=== PATIENT | male | born 1950 | race Two or more races ===

== ENCOUNTER → 2019-01-12 | Outpatient (REF) | payer OTHER, SELFPAY ==
[2019-01-12 20:51] LABS: ALBUMIN 3.8 GM/DL (3.2-5.2); ALT/SGPT 33 U/L (12-78); BILIRUBIN,TOTAL 0.4 MG/DL (0.2-1.0); BLOOD UREA NITROGEN 18 MG/DL (7-18); CALCIUM LEVEL 9.2 MG/DL (8.8-10.2); CARBON DIOXIDE LEVEL 30 MEQ/L (21-32); CHLORIDE LEVEL 103 MEQ/L (98-107); CHOLESTEROL LEVEL 219 MG/DL (<200); CHOLESTEROL RISK RATIO 5.341 (<5); CREATININE FOR GFR 0.96 MG/DL (0.70-1.30); FREE T4 0.62 NG/DL (0.76-1.46); GLOMERULAR FILTRATION RATE > 60.0 (>42); GLUCOSE, FASTING 84 MG/DL (70-100); HDL CHOLESTEROL 41 MG/DL (>40); LDL CHOLESTEROL 127 MG/DL (<100); NON-HDL-C 178 MG/DL; POTASSIUM SERUM 3.9 MEQ/L (3.5-5.1); SODIUM LEVEL 139 MEQ/L (136-145); TOTAL PROTEIN 7.3 GM/DL (6.4-8.2); TRIGLYCERIDES LEVEL 254 MG/DL (<150)
== END ==
LOC: M SFHCLERA 14:58
PROVIDERS: ATTEND Family Medicine
DX: I10 Essential (primary) hypertension (principal); R79.89 Other specified abnormal findings of blood chemistry

== ENCOUNTER 2020-04-16 17:18 | Inpatient (IN) | payer SELFPAY ==
[~2020-04-16] VITALS: Ht 165.1 cm; Wt 80.2 kg
[2020-04-16] MEDS ORDERED: KETOROLAC 30 MG/ML 1ML VIAL IV ONE (18:00)
[2020-04-16] MEDS ORDERED: NS 1,000 ML IV ONE (18:00)
[2020-04-16 18:19] LABS: BASO # 0.1 10^3/uL (0.0-0.2); BASO % 0.3 % (0.0-1.0); EOS % 0.1 % (0.0-3.0); HEMATOCRIT 37.3 % (42.0-52.0); HEMOGLOBIN 12.4 g/dl (13.5-17.5); LYMPH % 5.5 % (24.0-44.0); MEAN CORPUSCULAR HEMOGLOBIN 33.8 pg (27.0-33.0); MEAN CORPUSCULAR HGB CONC 33.2 g/dl (32.0-36.5); MEAN CORPUSCULAR VOLUME 101.6 fl (80.0-96.0); MONO # 1.4 10^3/uL (0.0-0.8); MONO % 7.8 % (0.0-5.0); NEUTROPHILS # 15.4 10^3/uL (1.5-8.5); NEUTROPHILS % 85.8 % (36.0-66.0); PLATELET COUNT, AUTOMATED 272 10^3/uL (150-450); RED BLOOD COUNT 3.67 10^6/uL (4.30-6.10); WHITE BLOOD COUNT 17.9 10^3/uL (4.0-10.0)
[2020-04-16] MEDS ORDERED: ISOVUE-370 76% 100ML VIAL As Ordered ONE (18:39)
[2020-04-16 18:41] LABS: ALBUMIN 2.7 GM/DL (3.2-5.2); BILIRUBIN,DIRECT 0.2 MG/DL (0.0-0.2); BILIRUBIN,TOTAL 0.4 MG/DL (0.2-1.0); TOTAL PROTEIN 6.7 GM/DL (6.4-8.2)
--- NOTE | 2020-04-16 19:44 | REPVR ---
PROCEDURE INFORMATION: Exam: CT Abdomen And Pelvis With Contrast Exam date and time: 04/16/2020 6:43 PM Age: 70 years old Clinical indication: Abdominal pain; Localized; Left lower quadrant (llq); Additional info: Llq pain TECHNIQUE: Imaging protocol: Computed tomography of the abdomen and pelvis with contrast. Radiation optimization: All CT scans at this facility use at least one of these dose optimization techniques: automated exposure control; mA and/or kV adjustment per patient size (includes targeted exams where dose is matched to clinical indication); or iterative reconstruction. Contrast material: ISOVUE 370; Contrast volume: 100 ml; Contrast route: INTRAVENOUS (IV); COMPARISON: No relevant prior studies available. FINDINGS: Liver: Normal. No mass. Gallbladder and bile ducts: Gallstones are present within the gallbladder. Pancreas: Normal. No ductal dilation. Spleen: Normal. No splenomegaly. Adrenal glands: Normal. No mass. Kidneys and ureters: Normal. No hydronephrosis. Stomach and bowel: There is thickening of the portion of the proximal sigmoid colon which directly abuts the deep inguinal ring of the left inguinal canal. There are multiple diverticula in this region. Extensive inflammation noted extending from the deep inguinal ring into the left inguinal canal and outside the margins of the inguinal canal anteriorly into the overlying pre pubic fat. There is a suggestion of a contained perforation or inflamed giant diverticulum arising from the inferior wall of the sigmoid colon that abuts the deep inguinal ring. Appendix: No evidence of appendicitis. Intraperitoneal space: Unremarkable. No free air. No significant fluid collection. Vasculature: Unremarkable. No abdominal aortic aneurysm. Lymph nodes: Unremarkable. No enlarged lymph nodes. Urinary bladder: Unremarkable as visualized. Reproductive: Prostate measures 3 by 4.8 by 4.1 cm. Bones/joints: Unremarkable. No acute fracture. Soft tissues: Marked Soft tissue thickening and subcutaneous emphysema noted in the left inguinal canal and pre pubic fat. Skin thickening noted at the level of the pannus of the abdomen. IMPRESSION: 1. Necrotizing fasciitis in the left groin. The infection extends into the left inguinal canal to the deep inguinal ring superiorly and involves the adjacent sigmoid colon. The inflammation could be related to a primary complicated diverticulitis or a strangulated Kamara's hernia. 2. Gallstones. Electronically signed by: Ninfa Garcia On 04/16/2020 19:43:25 PM
[2020-04-16] MEDS ORDERED: PIPERACILLIN/TAZOBACTAM SOD 3.375 GM in D5W MINI-BAG PLUS 50 ML IV ONE (20:15)
[2020-04-16 20:59] LABS: RSV AMPLIFICATION NEGATIVE (NEGATIVE)
[2020-04-16] MEDS ORDERED: LIDOCAINE 2% 100MG/5ML SDV (FOR ANES.) As Ordered ONE (21:27)
[2020-04-16] MEDS ORDERED: propofoL 200 MG/20 ML VIAL As Ordered ONE (21:27)
[2020-04-16] MEDS ORDERED: fentaNYL 100 MCG/2 ML INJECTION (J3010) As Ordered ONE ×2 (21:28→22:16)
[2020-04-16] MEDS ORDERED: MIDAZOLAM INJ 2MG/2ML VIAL (J2250 PER 1MG) As Ordered ONE (21:28)
[2020-04-16] MEDS ORDERED: KETOROLAC 60MG 2ML VIAL As Ordered ONE (22:11)
[2020-04-16] MEDS ORDERED: ONDANSETRON 4MG/2ML VIAL As Ordered ONE (22:11)
[2020-04-16] MEDS ORDERED: dexameTHASONE 4 MG/ML 1ML VIAL (J1100 PER 1MG) As Ordered ONE (22:11)
[2020-04-16] MEDS ORDERED: ULTRACET TAB PO PRN ×2 (22:45)
[2020-04-16] MEDS ORDERED: MORPHINE 2 MG/ML 1ML VIAL (J2270) IV PRN ×2 (22:45)
[2020-04-16] MEDS ORDERED: ONDANSETRON 4MG/2ML VIAL IV PRN ×2 (22:45→23:00)
[2020-04-16] MEDS ORDERED: ACETAMINOPHEN TAB 650MG DOSE (2X325MG) PO PRN (22:45)
[2020-04-16] MEDS ORDERED: KETOROLAC 30 MG/ML 1ML VIAL IV PRN ×2 (22:45→23:00)
[2020-04-16] MEDS ORDERED: fentaNYL 100 MCG/2 ML INJECTION (J3010) IV PRN (23:00)
[2020-04-16] MEDS ORDERED: LR 1,000 ML IV SCH (23:00)
[2020-04-16] MEDS ORDERED: PERCOCET 5MG/325MG TAB PO PRN (23:00)
[2020-04-16] MEDS ORDERED: oxyCODONE 5MG TAB PO PRN (23:00)
[2020-04-16] MEDS ORDERED: PERCOCET 5MG/325MG TAB As Ordered ONE (23:16)
[2020-04-16] MEDS: NS 1,000 ML IV SCH (23:43)
[2020-04-16 23:58] VITALS: BP 132/69
[2020-04-17] VITALS (18 sets, daily range): BP systolic 101–146; BP diastolic 63–76
[2020-04-17] MEDS: metroNIDAZOLE 500 MG in IV 1 EA IV SCH ×4 (00:12→23:42)
[2020-04-17] MEDS: CIPROFLOXACIN 400 MG in IV 1 EA IV SCH ×2 (01:19→13:55)
[2020-04-17] MEDS: NS 1,000 ML IV SCH ×3 (06:41→20:39)
[2020-04-17 06:53] LABS: HEMATOCRIT 36.3 % (42.0-52.0); HEMOGLOBIN 12.1 g/dl (13.5-17.5); MEAN CORPUSCULAR HEMOGLOBIN 34.2 pg (27.0-33.0); MEAN CORPUSCULAR HGB CONC 33.3 g/dl (32.0-36.5); MEAN CORPUSCULAR VOLUME 102.5 fl (80.0-96.0); PLATELET COUNT, AUTOMATED 278 10^3/uL (150-450); RED BLOOD COUNT 3.54 10^6/uL (4.30-6.10); WHITE BLOOD COUNT 18.6 10^3/uL (4.0-10.0)
[2020-04-17 07:14] LABS: BLOOD UREA NITROGEN 11 MG/DL (7-18); CARBON DIOXIDE LEVEL 26 MEQ/L (21-32); CHLORIDE LEVEL 106 MEQ/L (98-107); GLOMERULAR FILTRATION RATE > 60.0 (>42); GLUCOSE, FASTING 150 MG/DL (70-100); POTASSIUM SERUM 4.2 MEQ/L (3.5-5.1); SODIUM LEVEL 142 MEQ/L (136-145)
[2020-04-17] MEDS: PANTOPRAZOLE 40MG VIAL (C9113 PER 1) IV SCH (08:39)
--- NOTE | 2020-04-17 08:55 | ECGEPIP ---
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
[2020-04-17] MEDS ORDERED: LIDOCAINE 2% 100MG/5ML SDV (FOR ANES.) As Ordered ONE (09:33)
[2020-04-17] MEDS ORDERED: fentaNYL 250 MCG/5 ML INJECTION (J3010) As Ordered ONE (09:33)
[2020-04-17] MEDS ORDERED: propofoL 200 MG/20 ML VIAL As Ordered ONE (09:33)
[2020-04-17] MEDS ORDERED: ROCURONIUM BROMIDE 50 MG/5 ML VIAL As Ordered ONE ×2 (09:33→11:14)
[2020-04-17] MEDS ORDERED: MIDAZOLAM INJ 2MG/2ML VIAL (J2250 PER 1MG) As Ordered ONE (09:34)
--- NOTE | 2020-04-17 10:25 | HPE ---
HISTORY AND PHYSICAL DATE OF ADMISSION: 04/16/2020 CHIEF COMPLAINT: Abscess, left groin. HISTORY OF PRESENT ILLNESS: Patient is a 70-year-old Oriental [employer] male who recently moved to the area who developed left-sided abdominal pain about a month ago, was seen in the doctor's office and was treated with some antibiotics. During the treatment phase of this, he had some improvement of his abdominal pain and discomfort; however, once he stopped the antibiotics, he developed some progression of the abdominal pain and specifically, over the last week, it has been bad and over the last 48 hours has been getting worse. In the left groin, he has noticed bulging that has been present for the last several days, becoming more painful, tender, erythematous and, under evaluation in the emergency room, was found to have an abscess with questionable necrotizing fasciitis in the left groin. The patient's white count is elevated at 17.9. He has not had a colonoscopy before, has not had any bright red blood per rectum. Was diagnosed with hypertension in the past, although states this is relatively under control and also a "thyroid problem." No surgical history. PHYSICAL EXAMINATION: Reveals a 70-year-old male who looks disheveled. HEENT: Unremarkable. NECK: Supple without adenopathy. LUNGS: Clear anteriorly. HEART: Regular. ABDOMEN: Softly distended. He has tenderness throughout the left lower quadrant, but it seems as though it is isolated to this abscess that is in the left lower quadrant, just above the inguinal ligament and it is tender, erythematous, tightly distending the skin and seems to be necessitating at this time. Edema throughout the wall, cellulitis present with acute tenderness. IMPRESSION/PLAN: The patient is a 70-year-old, most likely had an episode of diverticulitis with perforation with an abscess that now is necessitating through the abdominal wall. Given his presentation, I have discussed with him issues that are involved, specifically with debridement of this extensive necrosis and possible need for exploratory laparotomy with diversion/colostomy, depending on operative findings. Patient understands and would like to proceed with operative intervention and schedule.
[2020-04-17] MEDS ORDERED: dexameTHASONE 4 MG/ML 1ML VIAL (J1100 PER 1MG) As Ordered ONE (10:44)
[2020-04-17] MEDS ORDERED: ePHEDrine SULFATE 25 MG/5 ML(5MG/ML) SYRINGE As Ordered ONE (10:44)
[2020-04-17] MEDS ORDERED: ONDANSETRON 4MG/2ML VIAL As Ordered ONE (10:44)
[2020-04-17] MEDS ORDERED: KETOROLAC 60MG 2ML VIAL As Ordered ONE (10:44)
[2020-04-17] MEDS ORDERED: ACETAMINOPHEN 1000MG 100ML IV BTL (OFIRMEV) (J0131 PER 10MG) As Ordered ONE (10:44)
[2020-04-17] MEDS ORDERED: HYDROmorphone HCL 2 MG/ML 1ML VIAL (J1170) As Ordered ONE (11:19)
[2020-04-17] MEDS ORDERED: SUGAMMADEX SODIUM 500 MG/5 ML VIAL (BRIDION) As Ordered ONE (11:57)
[2020-04-17] MEDS ORDERED: MORPHINE 1MG/ML IN 0.9% NACL 100ML IV BAG As Ordered ONE (12:15)
[2020-04-17] MEDS ORDERED: EPIDURAL/PCA KEYS XX PRN (12:15)
[2020-04-17] MEDS ORDERED: diphenhydrAMINE 50MG/ML VIAL (J1200) IV PRN (12:15)
[2020-04-17] MEDS ORDERED: NALOXONE INJ 0.4MG/1ML VIAL (J2310 PER 1MG) IV PRN (12:15)
[2020-04-17] MEDS ORDERED: NS 1,000 ML IV SCH (12:15)
[2020-04-17] MEDS ORDERED: IPRATROPIUM 0.5MG/ALBUTEROL 2.5MG INH SOL UD 3ML (DUONEB) NEB PRN (12:30)
[2020-04-17] MEDS ORDERED: LR 1,000 ML IV SCH (12:45)
[2020-04-17] MEDS ORDERED: fentaNYL 100 MCG/2 ML INJECTION (J3010) IV PRN (12:45)
[2020-04-17] MEDS ORDERED: oxyCODONE 5MG TAB PO PRN (12:45)
[2020-04-17] MEDS ORDERED: ONDANSETRON 4MG/2ML VIAL IV PRN (12:45)
[2020-04-17] MEDS ORDERED: MORPHINE 1MG/ML IN 0.9% NACL 100ML IV BAG IV PRN (13:00)
[2020-04-17] MEDS: IPRATROPIUM 0.5MG/ALBUTEROL 2.5MG INH SOL UD 3ML (DUONEB) NEB SCH ×2 (14:00→19:53)
[2020-04-17] MEDS: ALVIMOPAN 12 MG CAPSULE (ENTEREG) PO SCH (20:39)
[2020-04-18] VITALS (7 sets, daily range): BP systolic 114–148; BP diastolic 64–84
[2020-04-18] MEDS ORDERED: NS 1,000 ML IV ONE (00:15)
[2020-04-18] MEDS: CIPROFLOXACIN 400 MG in IV 1 EA IV SCH ×2 (00:23→13:29)
[2020-04-18] MEDS: IPRATROPIUM 0.5MG/ALBUTEROL 2.5MG INH SOL UD 3ML (DUONEB) NEB SCH ×4 (01:43→19:51)
[2020-04-18] MEDS: NS 1,000 ML IV SCH ×4 (04:58→23:52)
[2020-04-18 06:40] LABS: HEMOGLOBIN 10.5 g/dl (13.5-17.5); MEAN CORPUSCULAR HEMOGLOBIN 34.7 pg (27.0-33.0); MEAN CORPUSCULAR HGB CONC 33.9 g/dl (32.0-36.5); MEAN CORPUSCULAR VOLUME 102.3 fl (80.0-96.0); PLATELET COUNT, AUTOMATED 266 10^3/uL (150-450); RED BLOOD COUNT 3.03 10^6/uL (4.30-6.10); WHITE BLOOD COUNT 18.6 10^3/uL (4.0-10.0)
[2020-04-18 07:04] LABS: BLOOD UREA NITROGEN 16 MG/DL (7-18); CALCIUM LEVEL 8.2 MG/DL (8.8-10.2); CARBON DIOXIDE LEVEL 25 MEQ/L (21-32); CHLORIDE LEVEL 109 MEQ/L (98-107); CREATININE FOR GFR 0.71 MG/DL (0.70-1.30); GLOMERULAR FILTRATION RATE > 60.0 (>42); GLUCOSE, FASTING 129 MG/DL (70-100); POTASSIUM SERUM 4.3 MEQ/L (3.5-5.1); SODIUM LEVEL 143 MEQ/L (136-145)
[2020-04-18] MEDS: metroNIDAZOLE 500 MG in IV 1 EA IV SCH ×3 (08:56→23:51)
[2020-04-18] MEDS: ALVIMOPAN 12 MG CAPSULE (ENTEREG) PO SCH ×2 (08:56→21:23)
[2020-04-18] MEDS: PANTOPRAZOLE 40MG VIAL (C9113 PER 1) IV SCH (08:56)
--- NOTE | 2020-04-18 11:14 | RO ---
OPERATIVE NOTE DATE OF OPERATION: 04/16/2020 PREOPERATIVE DIAGNOSIS: Left groin abscess. POSTOPERATIVE DIAGNOSIS: Left groin abscess (necrotic skin, subcutaneous tissue). PROCEDURE: Excision and drainage/debridement of abdominal wall. SURGEON: Jeb Chen MD WRITER TECHNICAL PUBLICATIONS: ANESTHESIA: General endotracheal anesthesia. DESCRIPTION OF PROCEDURE: The patient was taken to the operating room, was given general anesthesia. After adequate anesthesia and preoperative antibiotics were given, the patient was prepped and draped in usual sterile fashion. An elliptical incision was made over the top of the abscess in the left groin. However, starting to get through the skin and subcutaneous tissue there was some significantly necrotic tissue present and wider dissection was performed to incorporate this mass abscess in the left groin. Once this abscess was opened there was some stool within the abscess with some purulent discharge and eventually the roof of the abscess down to the abdominal wall was debrided back and removed. There was some minimal drainage appreciated but I was not able to appreciate any stool or necrotic tissue extending up into the abdominal wall at this time. Given that this was most likely a diverticular abscess that perforated with some stool within it and then necessitated through the abdominal wall discussed with the family postoperatively that the plan is to continue with some dressing changes. However, if he develops a fistula tract from the colon out to the abdominal wall he may need operative intervention. They understand current plans.
--- NOTE | 2020-04-18 12:48 | IPNPDOC ---
Text Note Date of Service The patient was seen on 04/18/20. NOTE General Surgery Dr. Chen. Subjective. The patient is a 70-year-old [employer] male with progressive abdominal pain most likely had an episode of diverticulitis with perforation developing left groin abscess with necrotic skin and subcutaneous tissue. Patient is POD 2 status post excision and debridement of abdominal wall as per Dr. Chen. POD 1 status post sigmoid colon resection with colostomy as per Dr. Chen. The patient reports abdominal pain is controlled. He does report pain with moving or coughing which is to be expected. Objective. The patient is resting comfortably in bed. Temperature 98.2, heart rate 65, respiratory rate 15, blood pressure 117/84 and saturation 96% on 2 L nasal cannula. Cardiovascular. S1-S2 regular rate and rhythm Respiratory. Good air entry, there are few crackles at the bases. Abdomen. The patient is examined with Dr. Chen. Colostomy present with minimal brown liquid output. Stoma is pink.Mild abdominal distention. Midline abdominal incision and left groin incision with small amount of bloody drainage on the dressing. Necrotic tissue is still noted. The incisions were redressed with incisions packed with dry gauze with ABD pad. Extremities. No edema. I/O 2125/370 +1755 ARLYN drain right abdomen 125 mL 04/17/20 Labs. WBC 18.6, hemoglobin 10.5, platelets 266, serum creatinine 0.71 with GFR greater than 60. Assessment and plan POD2 Left groin abscess excision and debridement. Continue with dressing changes with plan to transition to wound VAC 04/19/20. POD1 sigmoid colon resection with colostomy. NPO IV fluids 125 mL per hour. Ostomy is pink There is a small amount of brown liquid noted for output. Typical postoperative appearance. Awaiting return to normal bowel function. Continue to monitor. Anemia. Hemoglobin is noted to be 10.5, this is down from admission baseline of 12. Currently there are no signs of active bleeding. Continue to monitor for need for transfusion. Recheck labs in a.m. Infectious The patient remained afebrile. White blood cell count was noted to be 18.6. Abscess fluid culture is pending. Initial Gram stain indicated few gram-positive rods and few gram-positive cocci. Continue with IV Cipro/Flagyl pending results. Continue with nebs Encouraged incentive spirometry. VS,Fishbone, I+O VS, Fishbone, I+O Laboratory Tests 04/18/20 06:19 Vital Signs Date Time Temp Pulse Resp B/P (MAP) Pulse Ox O2 Delivery O2 Flow Rate FiO2 04/18/20 10:00 98.2 65 15 117/84 (95) 96 Nasal Cannula 2.0 I&O- Last 24 Hours up to 6 AM 04/18/20 06:00 Intake Total 3225 ml Output Total 820 ml Balance 2405 ml Milena Russo Apr 18, 2020 12:48
[2020-04-19] MEDS: IPRATROPIUM 0.5MG/ALBUTEROL 2.5MG INH SOL UD 3ML (DUONEB) NEB SCH ×4 (00:33→19:35)
[2020-04-19] MEDS: CIPROFLOXACIN 400 MG in IV 1 EA IV SCH ×2 (01:22→12:15)
[2020-04-19 02:00] VITALS: BP 135/72
[2020-04-19 06:00] VITALS: BP 132/71
[2020-04-19 06:08] LABS: HEMATOCRIT 32.6 % (42.0-52.0); HEMOGLOBIN 10.7 g/dl (13.5-17.5); MEAN CORPUSCULAR HEMOGLOBIN 33.6 pg (27.0-33.0); MEAN CORPUSCULAR HGB CONC 32.8 g/dl (32.0-36.5); MEAN CORPUSCULAR VOLUME 102.5 fl (80.0-96.0); PLATELET COUNT, AUTOMATED 278 10^3/uL (150-450); RED BLOOD COUNT 3.18 10^6/uL (4.30-6.10); WHITE BLOOD COUNT 10.6 10^3/uL (4.0-10.0)
[2020-04-19 06:29] LABS: BLOOD UREA NITROGEN 14 MG/DL (7-18); CARBON DIOXIDE LEVEL 30 MEQ/L (21-32); CHLORIDE LEVEL 109 MEQ/L (98-107); CREATININE FOR GFR 0.73 MG/DL (0.70-1.30); GLOMERULAR FILTRATION RATE > 60.0 (>42); GLUCOSE, FASTING 98 MG/DL (70-100); SODIUM LEVEL 144 MEQ/L (136-145)
[2020-04-19] MEDS: ALVIMOPAN 12 MG CAPSULE (ENTEREG) PO SCH ×2 (08:25→21:48)
[2020-04-19] MEDS: metroNIDAZOLE 500 MG in IV 1 EA IV SCH ×2 (08:25→16:55)
[2020-04-19] MEDS: PANTOPRAZOLE 40MG VIAL (C9113 PER 1) IV SCH (08:25)
[2020-04-19 10:00] VITALS: BP 132/71
--- NOTE | 2020-04-19 10:59 | IPNPDOC ---
Text Note Date of Service The patient was seen on 04/19/20. NOTE General Surgery Dr. Chen. Subjective. The patient is a 70-year-old Scientology male with progressive abdominal pain most likely had an episode of diverticulitis with perforation developing left groin abscess with necrotic skin and subcutaneous tissue. Patient is POD 3 status post excision and debridement of abdominal wall as per Dr. Chen. POD 2 status post sigmoid colon resection with colostomy as per Dr. Chen. The patient reports abdominal pain this morning but he has not been utilizing his [employer], he forgets to use it. 's is also confirmed with nursing. Objective. The patient is resting comfortably in bed. Afebrile, heart rate 75, respiratory rate 18, blood pressure 132/71 and saturation 92% on room air. Cardiovascular. S1-S2 regular rate and rhythm Respiratory. Good air entry, there are few crackles at the bases. Abdomen. The patient is examined with Dr. Chen. Colostomy present with no output yet. Stoma is pink. Still with mild abdominal distention. Midline abdominal incision and left groin incision with shadowing on the dressing. Necrotic tissue is still noted. Plan is to apply wound VAC this morning. Extremities. No edema. I/O 4025/1410, +2615 ARLYN drain right abdomen 60 mL 04/18/20 Labs. WBC 10.6 which is decreased from 18.6 yesterday, hemoglobin 10.7 which is stable, platelets 278, serum creatinine 0.73 with GFR greater than 60. Assessment and plan POD3 Left groin abscess excision and debridement. Plan to apply wound VAC to both abdominal incisions today, discussed this with nursing. POD2 sigmoid colon resection with colostomy. Continue NPO The patient did have an IV fluid bolus 2/1 of 1 L, maintenance IV fluids are 125 mL per hour. Ostomy is pink There is no ostomy output thus far, awaiting return to normal bowel function. The patient's pain has been suboptimally controlled as he forgets to use [employer]. Plan is to discontinue [employer] and prn Toradol and change to scheduled Toradol 15 mg every 6 hours (15 mg dose recommended over 65yo), morphine 2 mg IV every 2 hours as needed. Continue to monitor. Anemia. Hemoglobin is noted to be 10.7, this is down from admission baseline of 12 but is stable over the past 2 days. Currently there are no signs of active bleeding. Continue to monitor for need for transfusion. Continue to monitor labs. Infectious The patient remained afebrile. White blood cell count is significantly improved today. Abscess fluid culture indicates pansensitive Escherichia coli. Initial Gram stain indicated few gram-positive rods and few gram-positive cocci. Continue with IV Cipro/Flagyl. Continue with nebs Encouraged incentive spirometry. VS,Fishbone, I+O VS, Fishbone, I+O Laboratory Tests 04/19/20 05:44 Vital Signs Date Time Temp Pulse Resp B/P (MAP) Pulse Ox O2 Delivery O2 Flow Rate FiO2 04/19/20 10:00 98.0 75 18 132/71 (91) 92 Room Air 04/18/20 10:00 2.0 I&O- Last 24 Hours up to 6 AM 04/19/20 06:00 Intake Total 2200 ml Output Total 3440 ml Balance -1240 ml Milena Russo Apr 19, 2020 10:59
[2020-04-19] MEDS ORDERED: MORPHINE 2 MG/ML 1ML VIAL (J2270) IV PRN (11:00)
[2020-04-19] MEDS: KETOROLAC 30 MG/ML 1ML VIAL IV SCH ×2 (12:15→16:55)
[2020-04-19 14:00] VITALS: BP 130/73
[2020-04-19 18:00] VITALS: BP 140/70
[2020-04-19 20:00] VITALS: BP 131/79
[2020-04-20] MEDS: metroNIDAZOLE 500 MG in IV 1 EA IV SCH ×4 (00:45→23:41)
[2020-04-20] MEDS: IPRATROPIUM 0.5MG/ALBUTEROL 2.5MG INH SOL UD 3ML (DUONEB) NEB SCH ×4 (01:20→20:58)
[2020-04-20] MEDS: CIPROFLOXACIN 400 MG in IV 1 EA IV SCH ×2 (01:57→12:08)
[2020-04-20 02:00] VITALS: BP 137/80
[2020-04-20] MEDS: KETOROLAC 30 MG/ML 1ML VIAL IV SCH ×5 (05:30→23:41)
[2020-04-20 06:00] VITALS: BP 141/91
[2020-04-20] MEDS: NS 1,000 ML IV SCH (06:33)
[2020-04-20 06:46] LABS: HEMATOCRIT 37.5 % (42.0-52.0); HEMOGLOBIN 12.6 g/dl (13.5-17.5); MEAN CORPUSCULAR HEMOGLOBIN 33.8 pg (27.0-33.0); MEAN CORPUSCULAR HGB CONC 33.6 g/dl (32.0-36.5); MEAN CORPUSCULAR VOLUME 100.5 fl (80.0-96.0); PLATELET COUNT, AUTOMATED 296 10^3/uL (150-450); RED BLOOD COUNT 3.73 10^6/uL (4.30-6.10); WHITE BLOOD COUNT 9.3 10^3/uL (4.0-10.0)
[2020-04-20 06:58] LABS: BLOOD UREA NITROGEN 14 MG/DL (7-18); CALCIUM LEVEL 8.4 MG/DL (8.8-10.2); CARBON DIOXIDE LEVEL 29 MEQ/L (21-32); CHLORIDE LEVEL 103 MEQ/L (98-107); CREATININE FOR GFR 0.68 MG/DL (0.70-1.30); GLOMERULAR FILTRATION RATE > 60.0 (>42); GLUCOSE, FASTING 114 MG/DL (70-100); POTASSIUM SERUM 3.9 MEQ/L (3.5-5.1); SODIUM LEVEL 140 MEQ/L (136-145)
[2020-04-20] MEDS: PANTOPRAZOLE 40MG VIAL (C9113 PER 1) IV SCH (08:23)
[2020-04-20] MEDS: ALVIMOPAN 12 MG CAPSULE (ENTEREG) PO SCH ×2 (08:23→19:44)
--- NOTE | 2020-04-20 09:15 | IPNPDOC ---
Text Note Date of Service The patient was seen on 04/20/20. NOTE General Surgery Dr. Chen. Subjective. The patient is a 70-year-old Shinto male with progressive abdominal pain most likely had an episode of diverticulitis with perforation developing left groin abscess with necrotic skin and subcutaneous tissue. Patient is POD 4 status post excision and debridement of abdominal wall as per Dr. Chen. POD 3 status post sigmoid colon resection with colostomy as per Dr. Chen. The patient reports abdominal pain has been reasonably controlled. Has been receiving scheduled Toradol, he has not used any morphine IV. Objective. The patient is resting comfortably in bed. Afebrile, heart rate 85, respiratory rate 18, blood pressure 141/91 and saturation 95% on room air. Cardiovascular. S1-S2 regular rate and rhythm Respiratory. Good air entry, no wheezing, no inspiratory rales were noted. Abdomen. The patient is examined with Dr. Chen. Colostomy present with no output yet but air is noted in the colostomy bag. Stoma is pink. Abdominal distention is improving. Midline abdominal incision and left groin incision with wound VAC intact. Extremities. No edema. I/O 1790/4285 -2495 ARLYN drain right abdomen 35 mL 04/19/20 Labs. WBC 9.3 this has continued to decline over the past few days, hemoglobin 12.6 which is back to his baseline at admission, platelets 296, serum creatinine 0.68 with GFR greater than 60. Assessment and plan POD4 Left groin abscess excision and debridement. Continue with wound VAC POD3 sigmoid colon resection with colostomy. Ostomy is pink, there is air noted inside the colostomy bag. Plan to discontinue IV fluids and try clear liquid diet. The patient's pain has been reasonably controlled with scheduled Toradol 15 mg every 6 hours. He has not used any IV morphine. Discontinue Schmidt Continue to monitor. Anemia. Hemoglobin is 12.6,this appears to be back to his admission baseline. Continue to monitor labs. Infectious The patient remains afebrile. White blood cell count is again improved and is noted to be 9.3 Abscess fluid culture indicates pansensitive Escherichia coli. Initial Gram stain indicated few gram-positive rods and few gram-positive cocci. Continue with IV Cipro/Flagyl. Continue with nebs and continue to encourage incentive spirometry. VS,Fishbone, I+O VS, Fishbone, I+O Laboratory Tests 04/20/20 06:14 Vital Signs Date Time Temp Pulse Resp B/P (MAP) Pulse Ox O2 Delivery O2 Flow Rate FiO2 04/20/20 06:00 97.2 85 18 141/91 (108) 95 Room Air 04/18/20 10:00 2.0 I&O- Last 24 Hours up to 6 AM 04/20/20 05:59 Intake Total 1790 ml Output Total 3585 ml Balance -1795 ml Milena Russo Apr 20, 2020 09:13
[2020-04-20 10:00] VITALS: BP 140/81
[2020-04-20 14:00] VITALS: BP 141/79
[2020-04-20 18:00] VITALS: BP 135/86
[2020-04-20 20:00] VITALS: BP 126/81
[2020-04-21] MEDS: CIPROFLOXACIN 400 MG in IV 1 EA IV SCH ×2 (01:10→12:35)
[2020-04-21] MEDS: IPRATROPIUM 0.5MG/ALBUTEROL 2.5MG INH SOL UD 3ML (DUONEB) NEB SCH ×4 (01:36→20:00)
[2020-04-21 02:00] VITALS: BP 128/82
[2020-04-21 06:00] VITALS: BP 129/80
[2020-04-21] MEDS: KETOROLAC 30 MG/ML 1ML VIAL IV SCH ×4 (06:06→23:48)
[2020-04-21 06:34] LABS: HEMATOCRIT 38.7 % (42.0-52.0); HEMOGLOBIN 12.9 g/dl (13.5-17.5); MEAN CORPUSCULAR HGB CONC 33.3 g/dl (32.0-36.5); MEAN CORPUSCULAR VOLUME 102.1 fl (80.0-96.0); PLATELET COUNT, AUTOMATED 278 10^3/uL (150-450); RED BLOOD COUNT 3.79 10^6/uL (4.30-6.10); WHITE BLOOD COUNT 10.3 10^3/uL (4.0-10.0)
[2020-04-21 06:56] LABS: BLOOD UREA NITROGEN 15 MG/DL (7-18); CALCIUM LEVEL 8.5 MG/DL (8.8-10.2); CARBON DIOXIDE LEVEL 28 MEQ/L (21-32); CHLORIDE LEVEL 105 MEQ/L (98-107); CREATININE FOR GFR 0.78 MG/DL (0.70-1.30); GLOMERULAR FILTRATION RATE > 60.0 (>42); GLUCOSE, FASTING 110 MG/DL (70-100); POTASSIUM SERUM 3.5 MEQ/L (3.5-5.1); SODIUM LEVEL 140 MEQ/L (136-145)
[2020-04-21] MEDS: metroNIDAZOLE 500 MG in IV 1 EA IV SCH ×3 (09:11→23:49)
[2020-04-21] MEDS: PANTOPRAZOLE 40MG VIAL (C9113 PER 1) IV SCH (09:11)
[2020-04-21] MEDS: ALVIMOPAN 12 MG CAPSULE (ENTEREG) PO SCH ×2 (09:11→20:39)
--- NOTE | 2020-04-21 09:55 | IPNPDOC ---
Text Note Date of Service The patient was seen on 04/21/20. NOTE General Surgery Dr. Chen. Subjective. The patient is a 70-year-old Buddhism male with progressive abdominal pain most likely had an episode of diverticulitis with perforation developing left groin abscess with necrotic skin and subcutaneous tissue. Patient is POD 5 status post excision and debridement of abdominal wall as per Dr. Chen. POD 4 status post sigmoid colon resection with colostomy as per Dr. Chen. The patient reports abdominal pain has been reasonably controlled. Has been receiving scheduled Toradol, he has not used any morphine IV. Patient is jared ating clear liquids, no nausea or vomiting, but states his appetite is poor. He was out of bed yesterday to the chair and ambulated in his room and to the nurse's station. Objective. The patient is resting comfortably in bed. Afebrile, heart rate 81, respiratory rate 18, blood pressure 129/80 and s aturation 97% on room air. Cardiovascular. S1-S2 regular rate and rhythm Respiratory. Good air entry, no wheezing, no inspiratory rales were noted. Abdomen. Colostomy present with no output yet but air is noted in the colostomy bag. Stoma is pink. Abdominal distention is less today. Midline abdominal incision and left groin incision with wound VAC intact. ARLYN drain intact with small amount of serosanguineous drainage this morning. Extremities. No edema. I/O 600po/1000IV /1620 -20 ARLYN drain right abdomen 70 mL 04/19/20 Labs. WBC 10.3, 9.3 yesterday hemoglobin 12.9 which is back to his baseline at admission, platelets 278, serum creatinine 0.78 with GFR greater than 60. Assessment and Plan POD5 Left groin abscess excision and debridement. Continue with wound VAC POD4 sigmoid colon resection with colostomy. Ostomy is pink, there is air noted inside the colostomy bag. No stool yet. ARLYN drain 70 mL yesterday Continue with clear liquid diet. The patient's pain has been reasonably controlled with scheduled Toradol 15 mg every 6 hours. He has not used any IV morphine. Continue to monitor. Anemia. Hemoglobin is 12.9,back to his admission baseline. Continue to monitor labs. Infectious The patient remains afebrile. White blood cell count is again improved and is noted to be 10.3, this is compared with 9.3 yesterday. Abscess fluid culture final report 04/20/20 indicated Escherichia coli. Sensitive to quinolone. Strep anginosus also sensitive to quinolone. Continue with IV Cipro/Flagyl. VS,Fishbone, I+O VS, Fishbone, I+O Laboratory Tests 04/21/20 06:08 Vital Signs Date Time Temp Pulse Resp B/P (MAP) Pulse Ox O2 Delivery O2 Flow Rate FiO2 04/21/20 06:00 98.1 81 18 129/80 (96) 97 Room Air 04/18/20 10:00 2.0 I&O- Last 24 Hours up to 6 AM 04/21/20 06:00 Intake Total 1600 ml Output Total 1370 ml Balance 230 ml Milena Russo Apr 21, 2020 09:55
[2020-04-21 10:00] VITALS: BP 131/82
[2020-04-21 14:00] VITALS: BP 141/78
[2020-04-21 18:00] VITALS: BP 133/77
[2020-04-21 20:00] VITALS: BP 140/81
[2020-04-22] MEDS: CIPROFLOXACIN 400 MG in IV 1 EA IV SCH ×2 (00:55→12:35)
[2020-04-22] MEDS: IPRATROPIUM 0.5MG/ALBUTEROL 2.5MG INH SOL UD 3ML (DUONEB) NEB SCH ×4 (02:00→20:00)
[2020-04-22 02:06] VITALS: BP 126/82
[2020-04-22] MEDS: KETOROLAC 30 MG/ML 1ML VIAL IV SCH ×3 (05:34→17:01)
[2020-04-22 05:59] LABS: HEMATOCRIT 37.8 % (42.0-52.0); HEMOGLOBIN 12.8 g/dl (13.5-17.5); MEAN CORPUSCULAR HEMOGLOBIN 34.3 pg (27.0-33.0); MEAN CORPUSCULAR HGB CONC 33.9 g/dl (32.0-36.5); MEAN CORPUSCULAR VOLUME 101.3 fl (80.0-96.0); PLATELET COUNT, AUTOMATED 266 10^3/uL (150-450); RED BLOOD COUNT 3.73 10^6/uL (4.30-6.10); WHITE BLOOD COUNT 10.2 10^3/uL (4.0-10.0)
[2020-04-22 06:00] VITALS: BP 138/87
[2020-04-22 06:21] LABS: BLOOD UREA NITROGEN 14 MG/DL (7-18); CALCIUM LEVEL 8.4 MG/DL (8.8-10.2); CARBON DIOXIDE LEVEL 29 MEQ/L (21-32); CHLORIDE LEVEL 107 MEQ/L (98-107); CREATININE FOR GFR 0.74 MG/DL (0.70-1.30); GLOMERULAR FILTRATION RATE > 60.0 (>42); GLUCOSE, FASTING 102 MG/DL (70-100); POTASSIUM SERUM 3.8 MEQ/L (3.5-5.1); SODIUM LEVEL 142 MEQ/L (136-145)
[2020-04-22] MEDS: metroNIDAZOLE 500 MG in IV 1 EA IV SCH ×2 (09:01→15:43)
[2020-04-22] MEDS: PANTOPRAZOLE 40MG VIAL (C9113 PER 1) IV SCH (09:01)
[2020-04-22] MEDS: ALVIMOPAN 12 MG CAPSULE (ENTEREG) PO SCH ×2 (09:01→20:41)
[2020-04-22 10:00] VITALS: BP 141/82
--- NOTE | 2020-04-22 11:39 | IPNPDOC ---
Text Note Date of Service The patient was seen on 04/22/20. NOTE General Surgery Dr. Chen. Subjective. The patient is a 70-year-old Catholic male with progressive abdominal pain most likely had an episode of diverticulitis with perforation developing left groin abscess with necrotic skin and subcutaneous tissue. Patient is POD 6 status post excision and debridement of abdominal wall as per Dr. Chen. POD 5 status post sigmoid colon resection with colostomy as per Dr. Chen. The patient reports abdominal pain has been reasonably controlled. Has been receiving scheduled Toradol, he has not used any morphine IV. Patient is jared ating clear liquids, no nausea or vomiting, but still states his appetite is poor. He was out of bed yesterday to the chair and is anxious to ambulate in pozo today. Objective. The patient is resting comfortably in bed. Afebrile, heart rate 68, respiratory rate 18, blood pressure 138/87, 95% on room air. Cardiovascular. S1-S2 regular rate and rhythm Respiratory. Good air entry, no wheezing, no inspiratory rales were noted. Abdomen. Colostomy present still no output but air is noted in the colostomy bag. Stoma is pink. Abdominal distention is improved. Dr. Chen was present for exam, Midline abdominal incision and left groin wound VAC was removed, tissue is pink, granulation is noted. ARLYN drain intact with small amount of serosanguineous drainage. Extremities. No edema. I/O 690po/400IV /640 +450 ARLYN drain right abdomen 40 mL Labs. WBC 10. 2, essentially unchanged hemoglobin 12.8, at baseline platelets 266 serum creatinine 0.74 with GFR greater than 60. Assessment and Plan POD6 Left groin abscess excision and debridement. The patient is reviewed and examined as per Dr. Chen this morning, wound VAC was removed, incisions appear to be healing. Plan is to resume wound VAC. POD5 sigmoid colon resection with colostomy. Ostomy is pink, there is air noted inside the colostomy bag, no output yet Plan to continue with clear liquid diet. The patient's pain has been reasonably controlled with scheduled Toradol 15 mg every 6 hours, D4. He has not used any IV morphine. Tentative plan is for consideration of discharge on Saturday. PT/OT ordered. The patient had 40 mL drainage in ARLYN drain yesterday, remove ARLYN drain today. Spoke to nursing about arranging colostomy supplies for the patient at discharge, the patient is self-pay. Will also request PFS. Tentative plan for wet-to-dry dressings at home at discharge. Anemia. Hemoglobin is 12.8, back to his admission baseline. Infectious The patient remains afebrile. White blood cell count is again improved and is noted to be 10.2, stable. Abscess fluid culture final report 04/20/20 indicated Escherichia coli and Strep anginosus both sensitive to quinolone. Continue with IV Cipro/Flagyl. VS,Fishbone, I+O VS, Fishbone, I+O Laboratory Tests 04/22/20 05:46 Vital Signs Date Time Temp Pulse Resp B/P (MAP) Pulse Ox O2 Delivery O2 Flow Rate FiO2 04/22/20 06:00 97.2 68 18 138/87 (104) 95 Room Air 04/18/20 10:00 2.0 I&O- Last 24 Hours up to 6 AM 04/22/20 06:00 Intake Total 1410 ml Output Total 565 ml Balance 845 ml Milena Russo Apr 22, 2020 11:39
[2020-04-22 14:00] VITALS: BP 131/76
[2020-04-22 20:42] VITALS: BP 139/90
[2020-04-23] MEDS: metroNIDAZOLE 500 MG in IV 1 EA IV SCH ×3 (00:53→16:39)
[2020-04-23] MEDS: KETOROLAC 30 MG/ML 1ML VIAL IV SCH ×4 (00:54→17:56)
[2020-04-23] MEDS: IPRATROPIUM 0.5MG/ALBUTEROL 2.5MG INH SOL UD 3ML (DUONEB) NEB SCH ×4 (01:01→20:00)
[2020-04-23 01:39] VITALS: BP 143/87
[2020-04-23] MEDS: CIPROFLOXACIN 400 MG in IV 1 EA IV SCH ×2 (02:09→11:52)
[2020-04-23 06:12] VITALS: BP 145/84
[2020-04-23 07:10] LABS: HEMATOCRIT 37.9 % (42.0-52.0); HEMOGLOBIN 12.1 g/dl (13.5-17.5); MEAN CORPUSCULAR HEMOGLOBIN 32.6 pg (27.0-33.0); MEAN CORPUSCULAR HGB CONC 31.9 g/dl (32.0-36.5); MEAN CORPUSCULAR VOLUME 102.2 fl (80.0-96.0); PLATELET COUNT, AUTOMATED 263 10^3/uL (150-450); RED BLOOD COUNT 3.71 10^6/uL (4.30-6.10); WHITE BLOOD COUNT 8.7 10^3/uL (4.0-10.0)
[2020-04-23 07:45] LABS: BLOOD UREA NITROGEN 15 MG/DL (7-18); CALCIUM LEVEL 8.1 MG/DL (8.8-10.2); CARBON DIOXIDE LEVEL 27 MEQ/L (21-32); CHLORIDE LEVEL 107 MEQ/L (98-107); CREATININE FOR GFR 0.69 MG/DL (0.70-1.30); GLOMERULAR FILTRATION RATE > 60.0 (>42); GLUCOSE, FASTING 102 MG/DL (70-100); POTASSIUM SERUM 3.7 MEQ/L (3.5-5.1); SODIUM LEVEL 142 MEQ/L (136-145)
[2020-04-23] MEDS: PANTOPRAZOLE 40MG VIAL (C9113 PER 1) IV SCH (08:22)
[2020-04-23] MEDS: ALVIMOPAN 12 MG CAPSULE (ENTEREG) PO SCH ×2 (08:22→22:04)
[2020-04-23 10:00] VITALS: BP 139/86
--- NOTE | 2020-04-23 10:41 | IPNPDOC ---
Text Note Date of Service The patient was seen on 04/23/20. NOTE No acute events overnight. He is tolerating the clear liquids without any nausea or emesis. There is air and stool in his bag and the wound vac is in place. 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
[2020-04-23 14:00] VITALS: BP 157/87
[2020-04-23 18:00] VITALS: BP 145/88
[2020-04-23 22:00] VITALS: BP 129/82
[2020-04-24] MEDS: KETOROLAC 30 MG/ML 1ML VIAL IV SCH ×2 (00:20→05:21)
[2020-04-24] MEDS: metroNIDAZOLE 500 MG in IV 1 EA IV SCH ×3 (00:20→16:19)
[2020-04-24] MEDS: CIPROFLOXACIN 400 MG in IV 1 EA IV SCH ×2 (01:57→14:07)
[2020-04-24 02:00] VITALS: BP 133/84
[2020-04-24] MEDS: IPRATROPIUM 0.5MG/ALBUTEROL 2.5MG INH SOL UD 3ML (DUONEB) NEB SCH ×4 (02:00→18:27)
[2020-04-24 06:00] VITALS: BP 132/80
--- NOTE | 2020-04-24 07:53 | IPNPDOC ---
Text Note Date of Service The patient was seen on 04/24/20. NOTE No acute events overnight. He is tolerating the reg diet without any nausea or emesis. There is air and stool in his bag and the wound vac is in place. His family was able to come and learn how to take care of the ostomy yesterday. 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
[2020-04-24] MEDS ORDERED: IBUPROFEN 600MG TAB PO PRN (08:00)
[2020-04-24] MEDS: ALVIMOPAN 12 MG CAPSULE (ENTEREG) PO SCH (08:52)
[2020-04-24] MEDS: PANTOPRAZOLE 40MG VIAL (C9113 PER 1) IV SCH (08:52)
[2020-04-24] MEDS: MIRALAX *UNIT DOSE* 17GM PACKET PO SCH (08:52)
[2020-04-24] MEDS: SENOKOT S TAB PO SCH ×2 (08:52→20:54)
[2020-04-24 10:00] VITALS: BP 124/75
[2020-04-24 14:00] VITALS: BP 132/80
[2020-04-24 18:00] VITALS: BP 126/85
[2020-04-24 22:00] VITALS: BP 127/84
[2020-04-25] MEDS: metroNIDAZOLE 500 MG in IV 1 EA IV SCH ×2 (00:34→09:34)
[2020-04-25] MEDS: CIPROFLOXACIN 400 MG in IV 1 EA IV SCH ×2 (00:34→13:30)
[2020-04-25 02:00] VITALS: BP 129/78
[2020-04-25] MEDS: IPRATROPIUM 0.5MG/ALBUTEROL 2.5MG INH SOL UD 3ML (DUONEB) NEB SCH ×4 (02:00→20:00)
[2020-04-25 06:00] VITALS: BP 131/82
[2020-04-25] MEDS: PANTOPRAZOLE 40MG VIAL (C9113 PER 1) IV SCH (09:33)
[2020-04-25] MEDS: SENOKOT S TAB PO SCH ×2 (09:34→21:00)
[2020-04-25] MEDS: MIRALAX *UNIT DOSE* 17GM PACKET PO SCH (09:35)
[2020-04-25 10:00] VITALS: BP 132/76
--- NOTE | 2020-04-25 12:26 | IPNPDOC ---
Text Note Date of Service The patient was seen on 04/25/20. NOTE General Surgery. Dr Chen. Subjective. The patient is a 70-year-old Episcopal male with progressive abdominal pain most likely had an episode of diverticulitis with perforation developing left groin abscess with necrotic skin and subcutaneous tissue, status post excision and debridement of abdominal wall as per Dr. Chen 04/16/20 and status post sigmoid colon resection with colostomy as per Dr. Chen 04/17/20. The patient denies nausea or vomiting. Was advanced to regular diet 04/23/20. He has only had a few pieces of stool in ostomy bag also a lot of air. He was placed on Senokot-S and MiraLAX 04/25/20. The patient denies abdominal pain. He has been out of bed and ambulating. Objective. The patient is resting comfortably in bed. Afebrile, VSS Cardiovascular. S1-S2 regular rate and rhythm Respiratory. Good air entry, no wheezing, no inspiratory rales were noted. Abdomen. Stoma is pink. There is air in the ostomy bag and 2 small pieces of stool. The patient has had little output thus far. Abdominal is soft but appears to be more distended today. Wound VAC in place over her abdominal wounds. Extremities. No edema. I/O 1230/900 WBC 8.7, hemoglobin 12.1. Normal electrolytes, GFR greater than 60. A/P S/P Left groin abscess excision and debridement. Abscess fluid culture final report 04/20/20 indicated Escherichia coli and Strep anginosus both sensitive to quinolone. Continue wound VAC. Tentative plan for wet-to-dry dressings at home at discharge. S/P sigmoid colon resection with colostomy 04/17/20. Advanced to regular diet 04/23/20. Patient started on bowel regimen 04/24/20. Senokot-S 2 tabs twice a day and MiraLAX daily. Patient is noted to have some abdominal distention this am. Ostomy is pink, there is air noted inside the colostomy bag but has had only a small amount of stool noted thus far. Continue to monitor effectiveness of bowel care. Hold off on discharge for today. Have discussed with nursing about arranging colostomy supplies for the patient at discharge, PFS requested, the patient is self-pay. VS,Fishbone, I+O VS, Fishbone, I+O Vital Signs Date Time Temp Pulse Resp B/P (MAP) Pulse Ox O2 Delivery O2 Flow Rate FiO2 04/25/20 10:00 98.8 69 18 132/76 (94) 95 Room Air I&O- Last 24 Hours up to 6 AM 04/25/20 05:59 Intake Total 1170 ml Output Total 900 ml Balance 270 ml Milena Russo Apr 25, 2020 12:26
[2020-04-25 14:00] VITALS: BP 158/80
[2020-04-25 18:00] VITALS: BP 135/81
[2020-04-25 22:00] VITALS: BP 114/76
[2020-04-26] MEDS: IPRATROPIUM 0.5MG/ALBUTEROL 2.5MG INH SOL UD 3ML (DUONEB) NEB SCH ×2 (00:15→08:00)
[2020-04-26 02:00] VITALS: BP 140/81
[2020-04-26 06:00] VITALS: BP 138/82
[2020-04-26] MEDS: SENOKOT S TAB PO SCH (08:50)
[2020-04-26] MEDS: MIRALAX *UNIT DOSE* 17GM PACKET PO SCH (08:54)
[2020-04-26] MEDS: PANTOPRAZOLE 40MG VIAL (C9113 PER 1) IV SCH (08:54)
[2020-04-26 10:00] VITALS: BP 121/76
--- NOTE | 2020-04-26 11:58 | DS.PDOC ---
Discharge Summary General Date of Admission Apr 16, 2020 at 21:35 Date of Discharge Apr 26, 2020 Discharge Summary PROCEDURES PERFORMED DURING STAY: Excision and debridement of abdominal wall as per Dr. Chen 04/16/20 Sigmoid colon resection with colostomy as per Dr. Chen 04/17/20. ADMITTING DIAGNOSES: Diverticulitis with perforation developing left groin abscess with necrotic skin and subcutaneous tissue DISCHARGE DIAGNOSES: Diverticulitis with perforation developing left groin abscess with necrotic skin and subcutaneous tissue, S/P excision and debridement of abdominal wall as per Dr. Chen 04/16/20, S/P sigmoid colon resection with colostomy as per Dr. Gonsalo min 04/17/20. HISTORY OF PRESENT ILLNESS: The patient is a 70-year-old Adan male with progressive abdominal pain who most likely had an episode of diverticulitis with perforation developing left groin abscess with necrotic skin and subcutaneous tissue admitted to [facility] 04/16/20. HOSPITAL COURSE: The patient is S/P excision and debridement of abdominal wall as per Dr. Chen 04/16/20. S/P sigmoid colon resection with colostomy as per Dr. Chen 04/17/20. Abscess culture indicated Escherichia coli and strep anginosus sensitive to quinolone. The patient completed 7 days of IV Cipro/Flagyl. Initially his white blood cell count was 17-18,000 and by 04/23/20 white count had normalized and was 8.7. The patient remained afebrile throughout his stay. Wound VAC was applied 04/19/20 with improvement in the patient's wounds. Plan at discharge is for the patient to continue with wet-to-dry dressings daily at home. The patient will have home care to assist him with this. Postoperatively the patient has recovered well, stoma has remained pink. The patient was advanced to clear liquids on 04/20 and to regular diet by 04/23. Regular bowel function has slowly resumed. The patient had not had much output from the ostomy on 04/24 therefore was started on bowel care, by the time of discharge the patient was having large amounts of brown stool in the ostimy bag and additional bowel care was not felt necessary as outpatient. The patient was noted to have some mild anemia postoperatively with hemoglobin of 10.5 but this returned to baseline stable in 12s. Plan is for discharge today with outpatient follow-up. The patient feels ready for discharge. The patient and his family did have ostomy teaching over the weekend. DISCHARGE MEDICATIONS: none ALLERGIES: Please see below. PHYSICAL EXAMINATION ON DISCHARGE: VITAL SIGNS: Please see below. GENERAL: NAD HEENT: MMM CARDIOVASCULAR EXAMINATION: S1S2 RRR RESPIRATORY EXAMINATION: CTA ABDOMINAL EXAMINATION: soft, ND, no G/R. stoma is pink, brown stool noted an ostomy bag. Wound VAC currently still in place over her abdominal wounds. EXTREMITIES: Well-perfused, no edema LABORATORY DATA: Please see below. IMAGING: CT A/P 04/16/20. IMPRESSION: 1. Necrotizing fasciitis in the left groin. The infection extends into the left inguinal canal to the deep inguinal ring superiorly and involves the adjacent sigmoid colon. The inflammation could be related to a primary complicated diverticulitis or a strangulated Kamara's hernia. 2. Gallstones. Electronically signed by: Ninfa Garcia On 04/16/2020 19:43:25 ACTIVITY:As tolerated, light activity, no lifting. DIET: Regular DISCHARGE PLAN: Discharge home today with home care to assist with dressing changes and colostomy. DISCHARGE INSTRUCTIONS: Regular diet Light activity, no heavy lifting Daily wet to dry dressing changes to both abdominal wounds. Home care to assist with daily dressing changes and colostomy management at home. Follow-up with Dr. Chen in the office in 3 weeks. DISCHARGE CONDITION: Stable. TIME SPENT ON DISCHARGE: Greater than 30 minutes. Vital Signs/I&Os Vital Signs Date Time Temp Pulse Resp B/P (MAP) Pulse Ox O2 Delivery O2 Flow Rate FiO2 04/26/20 10:00 98.2 72 20 121/76 (91) 96 Room Air I&O- Last 24 Hours up to 6 AM 04/26/20 06:00 Intake Total 1720 ml Output Total 1300 ml Balance 420 ml Laboratory Data CBC/BMP Item Value Date Time White Blood Count 8.7 10^3/uL 04/23/20 06 Red Blood Count 3.71 10^6/uL L 04/23/20651 Hemoglobin 12.1 g/dl L 04/23/20651 Hematocrit 37.9 % L 04/23/20 06 Mean Corpuscular Volume 102.2 fl H 04/23/20651 Mean Corpuscular Hemoglobin 32.6 pg 2/6/21 0652 Platelet Count 263 10^3/uL 04/23/20 0652 Sodium Level 142 MEQ/L 04/23/20 0652 Potassium Level 3.7 MEQ/L 04/23/20 0652 Chloride Level 107 MEQ/L 04/23/20 0652 Carbon Dioxide Level 27 MEQ/L 04/23/20 0652 Anion Gap 8 MEQ/L 04/23/20 0652 Blood Urea Nitrogen 15 MG/DL 04/23/20 0652 Creatinine 0.69 MG/DL L 04/23/20 0652 Glomerular Filtration Rate > 60.0 04/23/20 0652 Fasting Glucose 102 MG/DL H 04/23/20 0652 Calcium Level 8.1 MG/DL L 04/23/20 0652 Microbiology Microbiology 04/16/20 Gram Stain - Final, Complete 04/16/20 Abscess Culture - Final, Complete Escherichia Coli Enterococcus Avium Streptococcus Anginosus Grp 04/16/20 Anaerobic Culture - Final, Complete Bacteroides Vulgatus Prevotella Denita/Buccae Discharge Medications No Active Prescriptions or Reported Meds Allergies Coded Allergies: No Known Allergies (Unverified , 04/16/20) Milena Russo Apr 26, 2020 11:31
--- NOTE | 2020-04-29 14:24 | RO ---
OPERATIVE NOTE DATE OF OPERATION: 04/17/2020 PREOPERATIVE DIAGNOSIS: Perforated diverticulitis with colocutaneous fistula. POSTOPERATIVE DIAGNOSIS: Perforated diverticulitis with colocutaneous fistula. PROCEDURE: Sigmoid colectomy, end colostomy. SURGEON: Jeb Chen M.D. STOCK DRIER TENDER: ANESTHESIA: General endotracheal anesthesia. ESTIMATED BLOOD LOSS: Minimal. FLUIDS: Crystalloid. BRIEF PROCEDURE SUMMARY: The patient had undergone a debridement of an abdominal wall abscess yesterday. This was a very large abscess in the left lower quadrant and I anticipated that he probably had diverticulitis with a diverticular abscess that necessitated out his inguinal canal. After seeing him in the morning for evaluation of his postoperative status, his dressing was removed and there was actually stool that was within the wound itself coming out through the external ring. Thus he was planned for a sigmoid colectomy for this probable perforation/enterocutaneous fistula. He was taken to the operating room where he was prepped and draped in the usual sterile fashion. A midline incision was made with a skin knife. Electrocautery was used to cut through dermis and underlying subcutaneous tissue down through the fascia itself. The peritoneum was entered. A Bookwalter was used to provide adequate retraction and once adequate retraction was appreciated, the sigmoid colon was inflamed, thickened and stuck up into the pelvic sidewall. Distal to this, the distal rectum was not significantly inflamed. However, proximal to this, the patient had stool within his colon and it was mostly firm stool. The white line of Toldt was able to be taken down distal to this attachment in the pelvic sidewall and then proximal to this and then once this was isolated, dissection was performed in this area and essentially revealed that there was an abscess cavity/lateral portion of the colon had blown out and had made a little abscess at the internal ring and essentially this was irrigated out and the colon/sigmoid colon in this area was mobilized off the lateral pelvic sidewall along the white line of Toldt. Once this was mobilized nicely distally, a ALAN was used to staple the distal sigmoid colon and proximal to this perforation, this was also stapled. Mesentery was taken with [employer]y 60 vascular load. Once this was resected, then the descending colon, proximal sigmoid area was mobilized along the white line of Toldt all the way up to the splenic flexure although not mobilizing the splenic flexure itself. Once this was mobilized nicely off Gerota's and anterior up to the abdominal wall, I just needed to make sure that this was going to be enough from the left inguinal area that had the abscess that still was edematous and had some necrotic debris within it. A transabdominal incision was made with the first skin knife down through subcutaneous fat and a lateral portion of the rectus muscle was encountered and opened up. The anterior and posterior fascia was opened nicely and I was able to bring the colostomy through this. The midline then was closed after the abdomen was copiously irrigated until clear. A #19 Remington-Osorio drain was left in the bed of the dissection and the midline was closed with a looped 0 PDS. Given the erythematous, edematous skin was in relatively close approximation to the midline, I did not feel that this was prudent to close the incision at this time. Thus, it was packed and both sites were packed with gauze. The colostomy was matured with 3-0 Vicryl and an ostomy appliance was applied. The patient was awakened from his anesthesia, extubated and brought to the recovery room awake, alert and hemodynamically stable. Sponge and needle counts were correct x2.
== END 2020-04-26 12:30 | disposition home health service (06) | DRG 221 ==
LOC: M ED 17:18 → M SDC 21:26 → M ED INP 21:35 → ENRESERV 23:02 → M MS5PR 23:40
PROVIDERS: ADMIT Surgery; ATTEND Surgery
PROC: 0WBF0ZZ Excision of Abdominal Wall, Open Approach (ICD-10-PCS; principal; 2020-04-16 20:52)
PROC: 0D1N0Z4 Bypass Sigmoid Colon to Cutaneous, Open Approach (ICD-10-PCS; 2020-04-17)
PROC: 0DBN0ZZ Excision of Sigmoid Colon, Open Approach (ICD-10-PCS; 2020-04-17)
DX: K57.80 Diverticulitis of intestine, part unspecified, with perforation and abscess without bleeding (principal); L03.314 Cellulitis of groin; D64.9 Anemia, unspecified; B96.29 Other Escherichia coli [E. coli] as the cause of diseases classified elsewhere

== ENCOUNTER → 2020-12-29 | Outpatient (CLI) | payer SELFPAY | LOC: M LABSMTC 10:47 | PROVIDERS: ATTEND Anesthesiology | DX: Z01.812 Encounter for preprocedural laboratory examination (principal); Z20.822 Contact with and (suspected) exposure to COVID-19 ==

== ENCOUNTER 2021-01-03 06:10 | Inpatient (IN) | payer SELFPAY ==
--- NOTE | 2021-01-02 13:07 | HPE ---
HISTORY AND PHYSICAL DATE OF ADMISSION: 01/03/2021 CHIEF COMPLAINT: History of perforated diverticulitis with left lower quadrant colostomy. ASSOCIATED DIAGNOSIS: History of thyroid disease, history of hypertension, history of excision and debridement of lower abdominal wall (there the diverticulitis had necessitated out the abdominal wall) and status post sigmoid colon resection and colostomy. MEDICATIONS: None. PHYSICAL EXAMINATION: Physical exam reveals a 71-year-old male who looks his stated age. HEENT: Unremarkable. Neck is supple without adenopathy. Lungs are clear. Heart is regular. Abdomen is soft, nondistended and nontender. He has a colostomy in the left lower quadrant that is well-healed without any inflammation. No ulceration. IMPRESSION/PLAN: Patient is a 71-year-old male with a history of diverticulitis and left lower quadrant colostomy. Will plan on laparoscopic colostomy reversal with coloproctostomy/descending colon to rectum anastomosis. Will make him NPO, IV fluids, IV antibiotics, and plan on postoperative hospitalization, approximately three to five days depending on his overall course. Patient understands the risks as well as benefits associated with operative intervention, those including but not limited to infection, bleeding, damage to surrounding structures including bladder, bowel, nerve, vessels, possible need for open operative intervention as well as possible need for ostomy. He understands and would like to proceed with this as scheduled.
[2021-01-03] VITALS (8 sets, daily range): BP systolic 120–153; BP diastolic 59–78
[~2021-01-03] VITALS: Ht 167.6 cm; Wt 407.0 kg
[~2021-01-03 06:10] MED LIST: ceFAZolin SOD 2 GM in IV 1 EA IV SCH
[2021-01-03] MEDS: LR 1,000 ML IV SCH ×2 (07:00→10:58)
[2021-01-03] MEDS ORDERED: ROCURONIUM BROMIDE 50 MG/5 ML VIAL As Ordered ONE (07:15)
[2021-01-03] MEDS ORDERED: propofoL 200 MG/20 ML VIAL As Ordered ONE ×2 (07:15→08:43)
[2021-01-03] MEDS ORDERED: LIDOCAINE 2% 100MG/5ML SDV (FOR ANES.) As Ordered ONE (07:15)
[2021-01-03] MEDS ORDERED: fentaNYL 250 MCG/5 ML INJECTION (J3010) As Ordered ONE (07:16)
[2021-01-03] MEDS ORDERED: MIDAZOLAM INJ 2MG/2ML VIAL (J2250 PER 1MG) As Ordered ONE (07:16)
[2021-01-03] MEDS ORDERED: dexameTHASONE 4 MG/ML 1ML VIAL (J1100 PER 1MG) As Ordered ONE (07:16)
[2021-01-03] MEDS ORDERED: ONDANSETRON 4MG/2ML VIAL As Ordered ONE (07:16)
[2021-01-03] MEDS ORDERED: BUPIVACAINE/EPIN 0.25% 30 ML VIAL As Ordered ONE (07:17)
[2021-01-03] MEDS ORDERED: BUPIVACAINE LIPOSOME/PF 1.3% 20ML VIAL (13.3MG/ML)(EXPAREL)(C9290 PER1MG) As Ordered ONE (07:18)
[2021-01-03] MEDS ORDERED: BUPIVACAINE HCL 0.25% 30ML VIAL As Ordered ONE (07:18)
[2021-01-03] MEDS ORDERED: GLUCAGON INJ 1MG VIAL As Ordered ONE ×2 (07:18→11:06)
[2021-01-03 07:37] LABS: BLOOD UREA NITROGEN 14 MG/DL (7-18); CALCIUM LEVEL 9.2 MG/DL (8.8-10.2); CARBON DIOXIDE LEVEL 32 MEQ/L (21-32); CHLORIDE LEVEL 105 MEQ/L (98-107); CREATININE FOR GFR 0.83 MG/DL (0.70-1.30); GLOMERULAR FILTRATION RATE > 60.0 (>42); GLUCOSE, FASTING 89 MG/DL (70-100); POTASSIUM SERUM 3.5 MEQ/L (3.5-5.1); SODIUM LEVEL 140 MEQ/L (136-145)
[2021-01-03] MEDS ORDERED: ePHEDrine SULFATE 25 MG/5 ML(5MG/ML) SYRINGE As Ordered ONE (09:19)
[2021-01-03] MEDS ORDERED: SUGAMMADEX SODIUM 500 MG/5 ML VIAL (BRIDION) As Ordered ONE (09:30)
[2021-01-03] MEDS ORDERED: KETOROLAC 60MG 2ML VIAL As Ordered ONE (09:30)
[2021-01-03] MEDS ORDERED: ACETAMINOPHEN 1000MG 100ML IV BTL (OFIRMEV) (J0131 PER 10MG) As Ordered ONE (09:30)
[2021-01-03] MEDS ORDERED: hydrALAZINE 20MG/ML 1ML VIAL (J0360 PER 20MG) As Ordered ONE (09:56)
[2021-01-03] MEDS ORDERED: ONDANSETRON 4MG/2ML VIAL IV PRN ×2 (11:05→11:45)
[2021-01-03] MEDS ORDERED: MORPHINE 2 MG/ML 1ML VIAL (J2270) IV PRN (11:05)
[2021-01-03] MEDS ORDERED: MORPHINE 4 MG/ML 1ML VIAL/SYRINGE (J2270) IV PRN (11:05)
[2021-01-03] MEDS ORDERED: IPRATROPIUM 0.5MG/ALBUTEROL 2.5MG INH SOL UD 3ML (DUONEB) NEB PRN (11:05)
[2021-01-03] MEDS ORDERED: fentaNYL 100 MCG/2 ML INJECTION (J3010) As Ordered ONE (11:20)
[2021-01-03] MEDS: fentaNYL 100 MCG/2 ML INJECTION (J3010) IV PRN ×4 (11:20→11:36)
--- NOTE | 2021-01-03 11:44 | RO ---
OPERATIVE NOTE DATE OF OPERATION: 01/03/2021 PREOPERATIVE DIAGNOSIS: Status post colostomy for sigmoid diverticulitis. POSTOPERATIVE DIAGNOSIS: Status post colostomy for sigmoid diverticulitis. PROCEDURE: Laparoscopic colostomy reversal with sigmoid colectomy and coloproctostomy. SURGEON: Jeb Chen Jr, MD TEMPERATURE CONTROL INSPECTOR: Ulises Singh DO (provided assistance with colonic anastomosis, adhesiolysis and takedown of the colostomy). EBL: Minimal. FLUIDS: Crystalloid. ANESTHESIA: General endotracheal anesthesia. DISPOSITION: The patient was taken to the recovery room awake, alert, hemodynamically stable. DESCRIPTION OF PROCEDURE: The patient was given general anesthesia. After adequate anesthesia and preoperative antibiotics were given, the patient was prepped and draped in usual sterile fashion. The colostomy site itself was closed using #1 Prolene in running manner. Once this was closed off it was prepped again and the colostomy site was mobilized using skin knife around the colostomy. Electrocautery was used to cut through dermis, down to underlying subcutaneous tissue and eventually once this was well mobilized I could work down to the fascia and the fascia was as well nicely visualized and some adhesions off the posterior aspect of the fascia were taken down. Given this area and fascial defect here I was able to mobilize a good deal of adhesions and take down a bunch of adhesions in this area. Sarah catheter was placed in the area of the previous ostomy after using #1 Vicryl to close the area. The abdomen was insufflated. #10 trocar was placed along the midline. Two right-sided 5 mm trocars were placed and the patient was placed in Trendelenburg right side down position. There were some adhesions along the left side of the abdomen which were taken down with Harmonic scalpel and eventually I was able to mobilize the residual portion of the sigmoid colon/rectum using Harmonic scalpel. A dilator was placed into the rectum but there was an angle and some adhesions in the rectosigmoid area that it was difficult to get around. Once this was able to get around there was evidence of some ecchymosis in the wall of the sigmoid colon area. Thus, a colonoscope was inserted into the rectum, additional stool which was in this area was irrigated out and there was some petechial excoriation of this area but there was no evidence of mucosal trauma per se, no evidence of mucosal defect, no evidence of transmural defect in this area. Given the length of this rectal stump which actually went into the mid sigmoid area, it was actually so long that the EEA stapler was not going to reach the end and there was an area where there was some serosal thinning out above this area of the rectosigmoid junction. This, given the thinness in this area, I felt that it was warranted to resect this distal portion of the sigmoid colon and thus Harmonic scalpel was placed across the mesentery, all the way down to this area of the rectosigmoid and colon was resected using [employer] 60 green load. Once this was resected the EEA anastomosis with 25 stapler was performed and the anastomosis was insufflated, revealed no air leak, was traversed with the colonoscope and revealed good intact staple line with no evidence of leak. Proximal to this the area of hematoma in the mesentery revealed no mucosal damage or significant abnormality and thus the colonoscope was removed in its entirety. The pelvis was copiously irrigated until clear. Tisseel was placed on the anastomosis itself and the colon was removed via the ostomy site. A #19 Remington-Osorio drain was left independent in the dissection. Exparel was used in the ostomy site itself and all incisions were closed with cindy except for the ostomy site where it was able to approximate the subcutaneous tissue to some extent but not completely and thus I felt that this was better to keep open with some packing. Dry dressing was applied with dry dressing over the top of this. The patient was awakened, extubated, brought to recovery room awake, alert, hemodynamically stable. Sponge and needle counts correct x2.
[2021-01-03] MEDS ORDERED: PERCOCET 5MG/325MG TAB PO PRN (11:45)
[2021-01-03] MEDS ORDERED: LABETALOL 100MG/20ML VIAL IV PRN (11:45)
[2021-01-03] MEDS ORDERED: LR 1,000 ML IV SCH (11:45)
[2021-01-03] MEDS ORDERED: KETOROLAC 30 MG/ML 1ML VIAL IV ONE (12:05)
[2021-01-03] MEDS: NS 1,000 ML IV SCH ×2 (14:40→22:51)
[2021-01-03] MEDS: IPRATROPIUM 0.5MG/ALBUTEROL 2.5MG INH SOL UD 3ML (DUONEB) NEB SCH ×2 (14:50→19:31)
[2021-01-03] MEDS: KETOROLAC 30 MG/ML 1ML VIAL IV SCH ×2 (18:10→22:51)
[2021-01-04] MEDS: IPRATROPIUM 0.5MG/ALBUTEROL 2.5MG INH SOL UD 3ML (DUONEB) NEB SCH ×4 (02:29→19:48)
[2021-01-04] MEDS: NS 1,000 ML IV SCH ×2 (05:52→14:01)
[2021-01-04] MEDS: KETOROLAC 30 MG/ML 1ML VIAL IV SCH ×4 (05:53→22:50)
[2021-01-04 06:00] VITALS: BP 130/61
--- NOTE | 2021-01-04 07:09 | ECGEPIP ---
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
[2021-01-04] MEDS ORDERED: cefTRIAXone SOD 1 GM in D5W MINI-BAG PLUS 50 ML IV ONE (08:00)
[2021-01-04] MEDS: PANTOPRAZOLE 40MG VIAL (C9113 PER 1) IV SCH (09:22)
[2021-01-04 10:00] VITALS: BP 136/63
--- NOTE | 2021-01-04 12:05 | IPNPDOC ---
Text Note Date of Service The patient was seen on 01/04/21. NOTE General surgery. Dr Chen The patient is a 71-year-old male with history of diverticulitis status post sigmoid colon resection and left lower quadrant colostomy, status post laparoscopic colostomy reversal and descending colon to rectum anastomosis 01/03/[address] Chen. This morning, the patient states pain is controlled. He has not been out of bed yet. Reports small amount of flatus. Denies nausea or vomiting. Afebrile. Heart rate 70, respiratory rate 17, blood pressure 136/63, 98% room air. Awake and alert, resting in bed comfortably, no acute distress. Abdomen. Soft, nondistended, some shadowing is noted on the dressing left abdomen otherwise dressings are clean/dry/intact. ARLYN drain with serosanguineous drainage. 70 mL output documented yesterday. No new labs Assessment/plan History of diverticulitis status post sigmoid colon resection and left lower quadrant colostomy, now status post laparoscopic colostomy reversal and descending colon to rectum anastomosis 01/03/[address] Chen. The patient is reviewed and examined as per Dr Chen this morning. Plan to continue with IV fluids for now, trial of clear liquids. Continue Schmidt catheter for today. Wound care orders placed for previous ostomy site. VS,Fishbone, I+O VS, Fishbone, I+O Vital Signs Date Time Temp Pulse Resp B/P (MAP) Pulse Ox O2 Delivery O2 Flow Rate FiO2 01/04/21 10:00 98.3 70 17 136/63 (87) 98 Room Air 01/03/21 16:30 2.0 I&O- Last 24 Hours up to 6 AM 01/04/21 06:00 Intake Total 3237.5 ml Output Total 1305 ml Balance 1932.5 ml Milena Russo Jan 04, 2021 12:05
[2021-01-04 14:00] VITALS: BP 161/78
[2021-01-04 16:00] VITALS: BP 164/76
[2021-01-05 00:23] VITALS: BP 164/78
[2021-01-05 02:00] VITALS: BP 154/80
[2021-01-05] MEDS: IPRATROPIUM 0.5MG/ALBUTEROL 2.5MG INH SOL UD 3ML (DUONEB) NEB SCH ×4 (02:54→19:33)
[2021-01-05] MEDS: KETOROLAC 30 MG/ML 1ML VIAL IV SCH ×4 (05:10→23:02)
[2021-01-05 06:21] VITALS: BP 168/84
--- NOTE | 2021-01-05 08:58 | IPNPDOC ---
Text Note Date of Service The patient was seen on 01/05/21. NOTE General surgery. Dr Chen The patient is a 71-year-old male with history of diverticulitis status post sigmoid colon resection and left lower quadrant colostomy, status post laparoscopic colostomy reversal and descending colon to rectum anastomosis 01/03/[address] Chen. This morning, the patient is out of bed, eating breakfast. Schmidt catheter has been discontinued, the patient states he is urinating without difficulty. 2 bowel movements yesterday, 1 today. Patient denies pain. T-max 99.4 97.3 this morning Heart rate 77, respiratory rate 16, blood pressure 168/84, 94% room air. Awake and alert, sitting up to the chair, no acute distress Abdomen. Soft, nondistended, dressings are clean/dry/intact. ARLYN drain with small amount serosanguineous drainage. 85 mL output documented yesterday. Assessment/plan History of diverticulitis status post sigmoid colon resection and left lower quadrant colostomy, now status post laparoscopic colostomy reversal and descending colon to rectum anastomosis 01/03/[address] Chen. The patient is reviewed as per Dr Chen this morning. The patient is advanced to regular diet IV fluids are discontinued Schmidt catheter is discontinued, the patient is urinating without difficulty Continue wound care for previous ostomy site. ARLYN drain in place, 85 mL output yesterday. Continue to encourage out of bed Incentive spirometry VS,Fishbone, I+O VS, Fishbone, I+O Vital Signs Date Time Temp Pulse Resp B/P (MAP) Pulse Ox O2 Delivery O2 Flow Rate FiO2 01/05/21 06:21 168/84 (112) 01/05/21 05:00 97.3 77 16 94 Room Air 01/03/21 16:30 2.0 I&O- Last 24 Hours up to 6 AM 01/05/21 05:59 Intake Total 3250 ml Output Total 2235 ml Balance 1015 ml Milena Russo Jan 05, 2021 08:58
[2021-01-05] MEDS: PANTOPRAZOLE 40MG VIAL (C9113 PER 1) IV SCH (11:00)
[2021-01-05 14:00] VITALS: BP 186/90
[2021-01-05] MEDS ORDERED: NITROGLYCERIN 2% OINT 1 GM *U/D* PKT TOP SCH (15:30)
[2021-01-05] MEDS: NITROGLYCERIN 2% OINT 1 GM *U/D* PKT TOP SCH ×2 (17:00→23:03)
[2021-01-05 22:00] VITALS: BP 163/85
[2021-01-06] VITALS (8 sets, daily range): BP systolic 158–190; BP diastolic 84–100
[2021-01-06] MEDS: IPRATROPIUM 0.5MG/ALBUTEROL 2.5MG INH SOL UD 3ML (DUONEB) NEB SCH ×3 (00:17→13:29)
[2021-01-06] MEDS: KETOROLAC 30 MG/ML 1ML VIAL IV SCH ×3 (05:52→11:00)
[2021-01-06] MEDS: NITROGLYCERIN 2% OINT 1 GM *U/D* PKT TOP SCH ×2 (05:52→11:00)
[2021-01-06] MEDS: PANTOPRAZOLE 40MG VIAL (C9113 PER 1) IV SCH ×2 (09:00→10:18)
--- NOTE | 2021-01-06 09:11 | IPNPDOC ---
Text Note Date of Service The patient was seen on 01/06/21. NOTE General surgery. Dr Chen The patient is a 71-year-old male with history of diverticulitis status post sigmoid colon resection and left lower quadrant colostomy, status post laparoscopic colostomy reversal and descending colon to rectum anastomosis 01/03/[address] Chen. This morning, the patient is sitting on the side of the bed, eating breakfast. The patient denies pain. 7 bowel movements recorded yesterday. The patient's blood pressure was noted to be elevated, the patient has received 2 doses of topical nitroglycerin. Blood pressure this morning is noted to be 178/92. The patient states he does not take any antihypertensives as outpatient. Afebrile Heart rate 76, respiratory rate 16. Blood pressure 178/92 this morning and trending between 142/64-190/100. Awake and alert, sitting up to the chair, no acute distress Abdomen. Soft, nondistended, incisions are clean and dry, cindy intact. Wet to dry dressing over previous colostomy site. Dressings are clean/dry/intact. ARLYN drain with serosanguineous drainage. 60 mL output documented yesterday. Assessment/plan History of diverticulitis status post sigmoid colon resection and left lower quadrant colostomy, now status post laparoscopic colostomy reversal and descending colon to rectum anastomosis 01/03/[address] Chen. The patient is reviewed as per Dr. Miranda. The patient is tolerating regular diet. Continue dry dressings over incisions. Continue wet-to-dry dressings for previous ostomy site. ARLYN drain in place, 60 mL output yesterday. Continue to encourage out of bed Incentive spirometry. Possible discharge today pending recommendations for blood pressure control. Hypertension. The patient states he does not take any medications for his blood pressure as outpatient. Blood pressure remains elevated. The patient has received nitroglycerin topically x2 doses. Reviewed with Dr. Miranda, will request hospitalist consult for further recommendations regarding antihypertensive. Possibly proceed with discharge today pending BP control. VS,Fishbone, I+O VS, Fishbone, I+O Vital Signs Date Time Temp Pulse Resp B/P (MAP) Pulse Ox O2 Delivery O2 Flow Rate FiO2 01/06/21 08:02 178/92 (120) 01/06/21 05:50 98.3 76 16 96 Room Air 01/03/21 16:30 2.0 I&O- Last 24 Hours up to 6 AM 01/06/21 05:59 Intake Total 1110 ml Output Total 2895 ml Balance -1785 ml Attending Note Attending Note Agree with above note. Doing well overall. BP too high for me to feel comfortable sending him home. Will get hospitalist input. Milena Russo Jan 06, 2021 09:11 Tariq Miranda Jan 14, 2021 14:33
[2021-01-06] MEDS ORDERED: LISI-898 PO (10:57)
--- NOTE | 2021-01-06 14:22 | CR.PDOC ---
General Date of Consultation: Jan 06, 2021 Attending Physician: Ermelinda Tilley MD Consultation REASON FOR CONSULTATION/CHIEF COMPLAINT: High blood pressure HISTORY OF PRESENT ILLNESS: Patient is a 71-year-old male with past medical history of thyroid disease, hypertension, history of perforated diverticulitis s/p colon resection and colostomy placement who was admitted by the surgical team on 01/02/2021 for laparoscopic colostomy reversal with coloproctostomy/descending colon to rectum anastomosis. There were no complications postoperatively. Were notified on 01/06/2021 that the patient's blood pressure was uncontrolled with systolic BPs 160-180 mmHg, otherwise the patient was asymptomatic. The medicine team was asked to consult for blood pressure management. The patient has a known history of hypertension and follows with a primary care provider but is not on medications as outpatient. The patient denies eating a lot of salty foods and did not appear to be in pain when assessed. He denied chest pain, shortness of breath, fevers, chills, blurry vision, headache, lightheadedness, dizziness. ALLERGIES: Please see below. HOME MEDICATIONS: Please see below. PAST MEDICAL HISTORY: thyroid disease, hypertension, history of perforated diverticulitis PAST SURGICAL HISTORY: -perforated diverticulitis s/p colon resection and colostomy placement -laparoscopic colostomy reversal with coloproctostomy/descending colon to rectum anastomosis FAMILY HISTORY: No significant history SOCIAL HISTORY: denies alcohol, drug or smoking history. PCP- Manuel RODRIGUEZ PHYSICAL EXAMINATION: VITAL SIGNS: Please see below. CONSTITUTIONAL: No acute distress, resting comfortably, AAO x 3 EYES: PERRLA, EOM intact HENT, MOUTH: Normocephalic, atraumatic, moist mucous membranes, NECK: SUPPLE, no JVD, no lymphadenopathy, no carotid bruit CV: Regular rate and rhythm, S1S2 normal, no murmurs/rubs/gallops RESPIRATORY: Clear to auscultation bilaterally, no rales/rhonchi/wheezes GI: BS positive in 4 quadrants, soft, nontender, nondistended, no rebound or guarding, no organomegaly : Deferred MUSCULOSKELETAL: Normal ROM. No cyanosis, clubbing, swelling, joint deformity, extremity edema INTEGUMENTARY: Intact, no rashes, no lesions, no erythema NEUROLOGIC: Cranial Nerves II-XII are intact, no focal deficits PSYCHIATRIC: Mood and affect are normal LABORATORY DATA: Please see below IMAGING: None ASSESSMENT: 71-year-old male with past medical history of thyroid disease, hypertension, history of perforated diverticulitis s/p colon resection and colostomy placement who was admitted by the surgical team on 01/02/2021 for laparoscopic colostomy reversal with coloproctostomy/descending colon to rectum anastomosis. The medicine team was asked to consult for blood pressure management. PLAN: HTN -uncontrolled currently. Hx of HTN, not on home medications -Does not appear grossly fluid overloaded which would prompt lasix/diuretic to be given -Pain is controlled so likely not a factor, HR is wnl -Cr wnl so would suggest giving lisinopril 10 mg PO now and f/u BP in 30 mins. -He is likely 150-160 mmHg systolic at home and needs closer monitoring as o/p -Would recommend d/c with lisinopril 5 mg PO daily and f/u with PCP within 1-2 weeks after d/c History of perforated diverticulitis s/p colon resection and colostomy placement s/p surgery -POD 4 laparoscopic colostomy reversal with coloproctostomy/descending colon to rectum anastomosis. -Plan per surgery DISPOSITION: Thank you kindly for this consult. If any further questions please do not hesitate to call at any time. Vital Signs/I&O Vital Signs Date Time Temp Pulse Resp B/P (MAP) Pulse Ox O2 Delivery O2 Flow Rate FiO2 01/06/21 12:36 158/90 (112) 01/06/21 10:00 97.9 74 18 96 Room Air 01/03/21 16:30 2.0 I&O- Last 24 Hours up to 6 AM 01/06/21 06:00 Intake Total 1170 ml Output Total 2895 ml Balance -1725 ml Allergies Coded Allergies: No Known Allergies (Unverified , 04/16/20) Home Medications Scheduled Lisinopril (Lisinopril) 5 Mg Tablet, 5 MG PO DAILY for 30 Days, #30 Ermelinda Tilley MD Jan 06, 2021 14:22
--- NOTE | 2021-02-07 11:14 | DSES ---
DISCHARGE SUMMARY DATE OF ADMISSION: 01/03/2021 DATE OF DISCHARGE: 01/06/2021 PRINCIPAL DIAGNOSIS: History of diverticulitis with perforation and colostomy placement. OPERATIONS PERFORMED: Laparoscopic colostomy reversal with coloproctostomy. HISTORY: The patient was admitted with a history of perforated diverticulitis with an end colostomy. He had been doing well as an outpatient and is here for reversal of that colostomy. HOSPITAL COURSE SUMMARY: The patient was admitted with the above diagnosis, underwent a laparoscopic colostomy reversal and tolerated the procedure well. Postoperatively, he increased his activity, his diet, and eventually was discharged home on 01/06/2021 tolerating a regular diet, was discharged home on his usual hypertensive medication, lisinopril 5 mg by mouth daily. Dressing changes had been ordered to his colostomy site, and he was instructed to followup in our office in 2 weeks, sooner if there is any question, concerns, fevers or chills, or any problems with wound healing, and then also to slowly increase his diet over time. He will have his cindy removed in 1 week as well.
== END 2021-01-06 16:27 | disposition home or self-care (01) | DRG 221 ==
LOC: M OR 06:10 → M MSPAV 13:29
PROVIDERS: ADMIT Surgery; ATTEND Surgery
PROC: 0DQN4ZZ Repair Sigmoid Colon, Percutaneous Endoscopic Approach (ICD-10-PCS; 2021-01-03)
PROC: 0DBN4ZZ Excision of Sigmoid Colon, Percutaneous Endoscopic Approach (ICD-10-PCS; principal; 2021-01-03 07:30)
DX: Z43.3 Encounter for attention to colostomy (principal); E03.9 Hypothyroidism, unspecified; I10 Essential (primary) hypertension

== ENCOUNTER 2022-06-29 06:53 | Day surgery (SDC) | payer SELFPAY ==
[~2022-06-29] VITALS: Ht 170.2 cm; Wt 84.8 kg
[~2022-06-29 06:53] MED LIST changes: +CelecoXIB 400 MG CAP PO ONE; +LISI5TAB11 PO; -ceFAZolin SOD 2 GM in IV 1 EA IV SCH
[2022-06-29] MEDS ORDERED: LR 1,000 ML IV SCH (07:30)
[2022-06-29] MEDS ORDERED: MIDAZOLAM INJ 2MG/2ML VIAL As Ordered ONE (08:39)
[2022-06-29] MEDS ORDERED: fentaNYL 100 MCG/2 ML INJECTION As Ordered ONE (08:39)
[2022-06-29] MEDS ORDERED: LIDOCAINE 1% SDV 30ML VIAL As Ordered ONE (09:06)
[2022-06-29] MEDS ORDERED: BUPIVACAINE HCL 0.25% 30ML VIAL As Ordered ONE ×2 (09:06→09:14)
[2022-06-29] MEDS ORDERED: BOTOX THERAPEUTIC 100 UNIT VIAL As Ordered ONE (09:07)
[2022-06-29] MEDS ORDERED: propofoL 200 MG/20 ML VIAL As Ordered ONE (09:12)
[2022-06-29 11:45] VITALS: BP 166/77
== END 2022-06-29 12:00 | disposition home or self-care (01) ==
LOC: M SDC 06:53
PROVIDERS: ATTEND Surgery
DX: K43.2 Incisional hernia without obstruction or gangrene (principal); I10 Essential (primary) hypertension; E07.9 Disorder of thyroid, unspecified; Z79.899 Other long term (current) drug therapy
CPT/HCPCS: 64646; J0585; J2250; J3010; S0020

== ENCOUNTER → 2022-07-26 | Outpatient (CLI) | payer SELFPAY ==
[~2022-07-26] MED LIST changes: -CelecoXIB 400 MG CAP PO ONE; +LISI10TA22 PO
== END ==
LOC: M EKG 11:00
PROVIDERS: ATTEND Surgery
DX: Z01.818 Encounter for other preprocedural examination (principal); I10 Essential (primary) hypertension